=== PATIENT | male | born 1965 | race Caucasian/White ===

== ENCOUNTER → 2017-06-09 | Outpatient (CLI) | payer OTHER ==
[~2017-06-09] VITALS: Ht 177.8 cm; Wt 106.3 kg
[~2017-06-09] MED LIST: ASCO500T16 PO; ASPI325T45 PO; ATOR80TA PO; DOCU-94 PO; LPR50X PO; MULTTAB58 PO; NPR500 PO; OXYC1CAP5 PO; ZINC1CAP PO
[2017-06-09 16:08] VITALS: BP 120/74; PULSE 66; Ht 177.8 cm; Wt 106.3 kg
== END | disposition home or self-care (01) ==
LOC: C.NEUR 15:20
PROVIDERS: ATTEND Internal Medicine Pulmonary Disease
DX: G47.33 Obstructive sleep apnea (adult) (pediatric) (principal)